=== PATIENT | female | born 1960 | race Caucasian/White ===

== ENCOUNTER → 2017-06-17 | Outpatient (CLI) | payer BC ==
--- NOTE | 2017-06-17 14:00 | MM ---
Reason for exam: screening (asymptomatic). Last mammogram was performed 1 year and 9 months ago. History: Patient is postmenopausal. Physical Findings: A clinical breast exam by your physician is recommended on an annual basis and results should be correlated with mammographic findings. MG Screening Mammo w CAD Bilateral CC and MLO view(s) were taken. XCCL view(s) were taken of the right breast. Prior study comparison: September 18, 2015, bilateral MG screening mammo w CAD. August 27, 2000, bilateral screening mammogram. There are scattered fibroglandular densities. There is chronic nodularity in the right breast. There is no discrete abnormality. ASSESSMENT: Negative, BI-RAD 1 RECOMMENDATION: Routine screening mammogram of both breasts in 1 year.
== END | disposition home or self-care (01) ==
LOC: RADMAMWWP 07:43
PROVIDERS: ATTEND Family Medicine
DX: Z12.31 Encounter for screening mammogram for malignant neoplasm of breast (principal)
CPT/HCPCS: 77067

== ENCOUNTER → 2018-10-11 | Outpatient (CLI) | payer OTHER ==
--- NOTE | 2018-10-12 13:51 | MM ---
Reason for exam: screening (asymptomatic). Last mammogram was performed 1 year and 4 months ago. History: Patient is postmenopausal. Physical Findings: A clinical breast exam by your physician is recommended on an annual basis and results should be correlated with mammographic findings. MG Screening Mammo w CAD Bilateral CC and MLO view(s) were taken. Prior study comparison: June 17, 2017, bilateral MG screening mammo w CAD. September 18, 2015, bilateral MG screening mammo w CAD. There are scattered fibroglandular densities. There is no discrete abnormality. ASSESSMENT: Negative, BI-RAD 1 RECOMMENDATION: Routine screening mammogram of both breasts in 1 year.
== END | disposition home or self-care (01) ==
LOC: RADMAMWWP 10:57
PROVIDERS: ATTEND Family Medicine
DX: Z12.31 Encounter for screening mammogram for malignant neoplasm of breast (principal)
CPT/HCPCS: 77067

== ENCOUNTER 2021-01-08 08:55 | Day surgery (SDC) | payer OTHER ==
[2021-01-03 11:44] VITALS: BMI 40.3
[~2021-01-08 08:55] MED LIST: LACTATED RINGERS 1,000 ML IV SCH; LIDOCAINE 1% (10MG/ML) FOR IV START INTRADERMA PRN
[2021-01-08 09:24] VITALS: TEMP 97
[2021-01-08] MEDS ORDERED: PROPOFOL 10 MG/ML 20 ML VIAL IV ONE (09:33)
--- NOTE | 2021-01-08 09:59 | P.GSHP ---
History of Present Illness H&P Date: 01/08/21 CHIEF COMPLAINT: Colon screen HISTORY OF PRESENT ILLNESS: The patient is a 60-year-old female who presents for colon screen. Lower endoscopy was offered for further evaluation and management. She presents to me for the first time in consultation. PAST MEDICAL HISTORY: Please see list. PAST SURGICAL HISTORY: Please see list. MEDICATIONS: Please see list. ALLERGIES: Please see list. SOCIAL HISTORY: No illicit drug use FAMILY HISTORY: No reports of Crohn disease or ulcerative colitis. REVIEW OF ORGAN SYSTEMS: CONSTITUTIONAL: No reports of fevers or chills. PHYSICAL EXAM: VITAL SIGNS: Stable GENERAL: Well-developed pleasant in no acute distress. HEENT: No scleral icterus. Extraocular movements grossly intact. Moist buccal mucosa. NECK: Supple without lymphadenopathy. CHEST: Unlabored respirations. Equal bilateral excursions. CARDIOVASCULAR: Regular rate and rhythm. Distal 2+ pulses. ABDOMEN: Soft, nontender, nondistended. MUSCULOSKELETAL: No clubbing, cyanosis, or edema. ASSESSMENT: 1. Colon screen. PLAN: 1. Recommend proceeding with a lower endoscopy Past Medical History Past Medical History: GERD/Reflux, Hypertension, Sleep Apnea/CPAP/BIPAP Additional Past Medical History / Comment(s): USES BI-PAP MACHINE, PAST HX OF HTN., HX OF ATYPICAL CERVICAL CELLS., RECEIVED MODERNA COVID VACCINE 06/26/20 History of Any Multi-Drug Resistant Organisms: None Reported Additional Past Surgical History / Comment(s): GANGLION CYST ON FOOT, RHINOPLASTY, D & C, CRYO SURGERY FOR ATYPICAL CELLS. Past Anesthesia/Blood Transfusion Reactions: Previous Problems w/ Anesthesia Additional Past Anesthesia/Blood Transfusion Reaction / Comment(s): STATES ? CODEINE WITH RHINOPLASTY AND "HEART RATE TACHY" Past Psychological History: Anxiety, Depression Smoking Status: Never smoker Past Alcohol Use History: Occasional Past Drug Use History: Marijuana Additional Drug Use History / Comment(s): OCCASIONAL MARIJUANA USE - Past Family History Mother Family Medical History: Cancer Additional Family Medical History / Comment(s): THYROID CANCER Medications and Allergies Home Medications Medication Instructions Recorded Confirmed Type Acetaminophen [Tylenol Extra 1,000 mg PO DIRECTED 01/03/21 01/03/21 History Strength] Calcium Carbonate [Tums] 750 mg PO DIRECTED PRN 01/03/21 01/08/21 History Citalopram Hydrobromide [CeleXA] 20 mg PO HS 01/03/21 01/03/21 History Allergies Allergy/AdvReac Type Severity Reaction Status Date / Time Penicillins Allergy Severe Rash/Hives Verified 01/03/21 11:12 Surgical - Exam Vital Signs Temp Pulse Resp BP Pulse Ox 97.0 F L 86 16 145/65 95 01/08/21 09:22 01/08/21 09:22 01/08/21 09:22 01/08/21 09:22 01/08/21 09:22
--- NOTE | 2021-01-08 10:01 | P.PCN ---
Date of Procedure: 01/08/21 Description of Procedure: PREOPERATIVE DIAGNOSIS: Colonoscopy screening. Family history colon cancer. POSTOPERATIVE DIAGNOSIS: Colonoscopy screening. Family history colon cancer. OPERATION: Colonoscopy to the cecum, ileocecal valve and appendiceal orifice. SURGEON: Akiko Culp MD. ANESTHESIA: MAC. INDICATIONS: The patient is a 60-year-old female who presents for colonoscopy screening. Benefits and risks were described and informed consent was obtained. DESCRIPTION OF PROCEDURE: The patient had undergone Sutab prep. The patient had been brought into the operating room and laid in the left lateral decubitus position. After adequate intravenous sedation, the rectum was examined with 2% lidocaine jelly. No external hemorrhoids were encountered. The rectal tone was within normal limits. No lesions were palpated in the rectal vault. An Olympus colonoscope was advanced until the cecum, ileocecal valve and appendiceal orifice were clearly viewed. The prep was excellent. Scattered diverticulosis was encountered. No colonic polyps were found. No evidence of focal colitis was found. Retroflexion of the scope demonstrated grade 1 internal hemorrhoids without active bleeding or inflammation. The colon was desufflated. The patient had tolerated the procedure well. Withdrawal time was over 6 minutes. FINDINGS: Aronchick preparation quality scale 1 (1-5) Internal hemorrhoids, grade 1 No external prolapsed hemorrhoids. No arteriovenous malformations. No adenomatous polyps. No focal colitis. RECOMMENDATIONS: Lower endoscopy in 5 years, 2025 due to family history and elevated risk Plan - Discharge Summary New Discharge Prescriptions: Continue Citalopram Hydrobromide [CeleXA] 20 mg PO HS Acetaminophen [Tylenol Extra Strength] 1,000 mg PO DIRECTED Calcium Carbonate [Tums] 750 mg PO DIRECTED PRN PRN Reason: Heartburn Discharge Medication List Acetaminophen [Tylenol Extra Strength] 1,000 mg PO DIRECTED 01/03/21 [History] Calcium Carbonate [Tums] 750 mg PO DIRECTED PRN 01/03/21 [History] Citalopram Hydrobromide [CeleXA] 20 mg PO HS 01/03/21 [History] Follow up Appointment(s)/Referral(s): Akiko Culp MD [STAFF PHYSICIAN] - 01/28/21 Patient Instructions/Handouts: *Surgery [facility] - (Anesthesia) Endoscopy Discharge Instructions, Colonoscopy (DC) Activity/Diet/Wound Care/Special Instructions: Repeat colonoscopy in 5 years, 2025 Discharge Disposition: HOME SELF-CARE
[2021-01-08 10:58] VITALS: BP 137/65; PULSE 75; RESP 18
== END 2021-01-08 11:04 | disposition home or self-care (01) ==
LOC: ORWHC2ENDO 08:55
PROVIDERS: ATTEND Surgery Plastic and Reconstructive Surgery
DX: Z12.11 Encounter for screening for malignant neoplasm of colon (principal); K57.30 Diverticulosis of large intestine without perforation or abscess without bleeding; K64.0 First degree hemorrhoids; Z80.0 Family history of malignant neoplasm of digestive organs; I10 Essential (primary) hypertension; K21.9 Gastro-esophageal reflux disease without esophagitis; G47.30 Sleep apnea, unspecified; F41.9 Anxiety disorder, unspecified; F32.9 Major depressive disorder, single episode, unspecified; G47.33 Obstructive sleep apnea (adult) (pediatric); E66.01 Morbid (severe) obesity due to excess calories; Z68.41 Body mass index [BMI] 40.0-44.9, adult; Z79.899 Other long term (current) drug therapy; Z88.0 Allergy status to penicillin; Z98.890 Other specified postprocedural states; Z80.8 Family history of malignant neoplasm of other organs or systems
CPT/HCPCS: J2704; G0105

== ENCOUNTER → 2021-05-23 | Outpatient (CLI) | payer OTHER ==
--- NOTE | 2021-05-24 07:21 | US ---
EXAMINATION TYPE: US pelvis complete transvag DATE OF EXAM: 05/23/2021 COMPARISON: NONE CLINICAL HISTORY: N95.0 Postmenopausal Bleeding. One episode of vaginal spotting per patient; ; n ot taking hormones; post menopause mid 50's. TECHNIQUE: Transvaginal (TV) and Transabdominal (TA) . Transabdominal sonographic images of the pel vis were acquired. Transvaginal sonographic images were medically necessary to better assess the fol lowing anatomy: endometrium. Date of LMP: mid 50's EXAM MEASUREMENTS: Uterus: 7.5 x 5.2 x 3.8 cm Endometrial Stripe: 1.2 cm Right Ovary: 1.3 x 2.1 x 1.5 cm Left Ovary: 2.0 x 1.5 x 1.0 cm 1. Uterus: Anteverted; hypoechoic heterogeneous oval myometrial mass is seen in upper uterus suggest s uterine fibroid = 1.2 x 0.9 x 0.7cm; cystic area in upper myometrium = 0.5x 0.4 x 0.4cm; multiple s mall Nabothian Cysts are seen with largest complex cyst seen = 0.6 x 0.5 x 0.4cm. 2. Endometrium: abnormally thickened for post menopausal female as measure should be less than 0.8cm . 3. Right Ovary: wnl 4. Left Ovary: wnl 5. Bilateral Adnexa: wnl 6. Posterior cul-de-sac: wnl IMPRESSION: 1. Endometrial thickening. 2. Leiomyomatous changes noted.
== END | disposition home or self-care (01) ==
LOC: RADUSWWP 16:16
PROVIDERS: ATTEND Family Medicine
DX: D25.9 Leiomyoma of uterus, unspecified (principal); R93.89 Abnormal findings on diagnostic imaging of other specified body structures
CPT/HCPCS: 76830; 76856